=== PATIENT | male | born 1965 | race African-American/Black ===

== ENCOUNTER 2018-08-25 17:20 | Inpatient (IN) | payer OTHER, MEDICARE ==
[~2018-08-25] VITALS: Ht 167.6 cm; Wt 94.8 kg
[2018-08-25] MEDS ORDERED: SODIUM CHLORIDE 0.9% 1,000 ML IVB ONE (18:11)
[2018-08-25] MEDS ORDERED: ACETAMINOPHEN 325 MG TAB PO ONE (18:15)
[2018-08-25 18:32] LABS: Hemoglobin 17.6 g/dL (13.5-17.5); Mean Corpuscular Volume 100.2 fL (80.0-100.0); Red Cell Distribution Width 13.3 % (11.8-14.3)
[2018-08-25 18:35] LABS: Hematocrit 51.1 % (41.0-53.0); Mean Corpuscular Hemoglobin 34.5 pg (28.0-32.0); Mean Corpuscular Hgb Conc. 34.4 g/dL (32.0-36.0); Platelet Count (auto) 166 10^3/uL (140-450); White Blood Cell 6.7 10^3/uL (4.4-10.8)
[2018-08-25 18:40] LABS: Basophils % (manual) 0 (0.0-2.0); Blast Cells 0; Eosinophils % (manual) 0 (0-7); Metamyelocytes % 0; Myelocytes % 0; Promyelocytes % 0; Reactive Lymphocytes 0
[2018-08-25 18:50] LABS: Albumin 3.7 g/dL (3.4-5.0); Anion Gap 7 (5-15); Blood Urea Nitrogen 10 mg/dL (7-18); Calcium 8.7 mg/dL (8.5-10.1); Carbon Dioxide 29 mmol/L (21-32); Chloride 102 mmol/L (98-107); Glucose 223 mg/dL (74-106); Potassium 3.4 mmol/L (3.5-5.1); Sodium 138 mmol/L (136-145)
[2018-08-25 18:54] LABS: INR 0.99 (0.9-1.15); Partial Thromboplastin Time 30.4 sec (23.78-33.04); Prothrombin Time 10.6 sec (9.27-12.13)
[2018-08-25 18:56] LABS: Alanine Aminotransferase 25 U/L (16-61); Alkaline Phosphatase 58 U/L (45-117); Aspartate Aminotransferase 28 U/L (15-37); BUN/Creatinine Ratio 8.1; Bilirubin, Total 0.7 mg/dL (0.2-1.0); GFR African American > 60 mL/min; GFR Non-African American > 60 mL/min; Total Protein 8.1 g/dL (6.4-8.2)
[2018-08-25] MEDS ORDERED: cefTRIAXone 1GM/50ML D5W 50 ML IV ONE (19:45)
[2018-08-25] MEDS ORDERED: ASPirin-EC 81 mg tab PO ONE (19:45)
[2018-08-25] MEDS ORDERED: NITROGLYCERIN 0.4 MG SL TAB SL PRN (20:30)
[2018-08-25] MEDS ORDERED: ENOXAPARIN SOD 100 MG/1 ML SYRINGE SC ONE (20:30)
[2018-08-25] MEDS ORDERED: DEXTROSE (50%) 50ML SYRG IV PRN (20:30)
[2018-08-25] MEDS ORDERED: MORPHINE SULFATE 10 MG/ML INJ 1ML SDV IV PRN (20:30)
[2018-08-25] MEDS ORDERED: DOCUSATE SOD 100 MG CAP PO PRN (20:30)
[2018-08-25] MEDS ORDERED: DILTIAZEM HCL 25 MG/5 ML VIAL IV ONE (20:30)
[2018-08-25] MEDS ORDERED: ENOXAPARIN SOD 80 MG/0.8ML SYRINGE SC ONE (20:45)
[2018-08-25] MEDS ORDERED: ONDANSETRON HCL 4 MG/2 ML VIAL IV ONE (21:00)
[2018-08-25] MEDS ORDERED: MORPHINE SULFATE 10 MG/ML INJ 1ML SDV IV ONE (21:00)
[2018-08-25 21:30] LABS: Band Neutrophils % (manual) 2; Lymphocytes % (manual) 6 (10.0-50.0); Monocytes % (manual) 8 (0-12)
[2018-08-25] MEDS ORDERED: ATORVASTATIN 20 MG TAB PO SCH (22:00)
[2018-08-25 22:40] VITALS: BP 147/69
--- NOTE | 2018-08-25 22:40 | NUR ---
Telemetry admit from ER RE[facility] KENYON admitted to Telemetry unit. Patient oriented to Carly Blair RN primary RN, unit, room, bed, and unit policies regarding patient care and visiting hours. Patient now on continuous telemetry monitoring, tele box # 8 sinus tachy 116. Patient placed on bedside oxygen 3L NC, weighed by bedscale and encouraged to call if they need something. All questions and concerns addressed, patient verbalized understanding. Note:
[2018-08-25] MEDS ORDERED: METOPROLOL TARTRATE 25 MG TAB PO ONE (22:45)
[2018-08-25] MEDS: FAMOTIDINE 20 MG TAB PO SCH (23:24)
[2018-08-25] MEDS: ACETAMINOPHEN 325 MG TAB PO PRN (23:24)
[2018-08-25] MEDS: ACCU-CHEK COMFORT CURVE STRIP VI SCH (23:25)
[2018-08-25] MEDS: InsuLIN REG 1unit/0.01ml Soln (100units/ml) SC SCH (23:30)
[2018-08-25] MEDS: TEMAZEPAM 15 MG CAP PO PRN (23:35)
[2018-08-25 23:43] VITALS: BP 147/67
--- NOTE | 2018-08-25 23:50 | NUR ---
UA bulleted to lab
[2018-08-26] VITALS (8 sets, daily range): BP systolic 117–150; BP diastolic 74–90
[2018-08-26 00:01] LABS: Urine Bacteria NONE SEEN /hpf (None Seen); Urine Blood 2+ /uL (Negative); Urine Mucus FEW (None Seen); Urine Specific Gravity 1.036 (1.001-1.035); Urine WBC 6 /hpf (0 - 3)
[2018-08-26] MEDS: ACETAMINOPHEN 325 MG TAB PO PRN (05:23)
--- NOTE | 2018-08-26 05:29 | NUR ---
MD Called/paged Hospitalist called re:sob at rest on 5L NC, wheezing and rales, patient requesting breathing treatment . Waiting for call back. Continue care.
[2018-08-26] MEDS ORDERED: methylPREDNISolone SOD SUCC 125 MG/2 ML VL IV ONE (05:45)
[2018-08-26] MEDS: InsuLIN REG 1unit/0.01ml Soln (100units/ml) SC SCH ×3 (06:01→17:33)
[2018-08-26] MEDS: ACCU-CHEK COMFORT CURVE STRIP VI SCH ×3 (06:01→17:33)
[2018-08-26] MEDS: ALBUTEROL SULF 2.5 MG/0.5ML(0.5%) NEB SOLN NEB PRN ×2 (06:02→15:02)
--- NOTE | 2018-08-26 06:03 | NUR ---
RT at bedside Patient states pain has been relieved with pain medication, sob at 5L NC, improved. Will continue to monitor, medicated as ordered. RT to administer ordered breathing treatment at this time
[2018-08-26 06:23] LABS: Basophils # (auto) 0 uL; Basophils % (auto) 0.3 % (0.0-2.0); Eosinophils # (auto) 0 uL; Lymphocytes # (auto) 0.8 uL; Monocytes # (auto) 0.4 uL
[2018-08-26 06:26] LABS: Eosinophils % (auto) 0.1 % (0.0-7.0); Hematocrit 46.7 % (41.0-53.0); Hemoglobin 16.3 g/dL (13.5-17.5); Lymphocytes % (auto) 10.5 % (10.0-50.0); Mean Corpuscular Hgb Conc. 34.9 g/dL (32.0-36.0); Mean Corpuscular Volume 100.2 fL (80.0-100.0); Monocytes % (auto) 4.9 % (0.0-12.0); Neutrophils # (auto) 6.5 uL; Neutrophils % (auto) 84.2 % (37.0-80.0); Platelet Count (auto) 157 10^3/uL (140-450); Red Blood Cells 4.66 10^6/uL (4.5-5.90); Red Cell Distribution Width 13.2 % (11.8-14.3); White Blood Cell 7.7 10^3/uL (4.4-10.8)
[2018-08-26 06:55] LABS: Albumin 3.4 g/dL (3.4-5.0); Anion Gap 6 (5-15); Blood Urea Nitrogen 14 mg/dL (7-18); Calcium 8.5 mg/dL (8.5-10.1); Carbon Dioxide 29 mmol/L (21-32); Chloride 102 mmol/L (98-107); Glucose 171 mg/dL (74-106); Sodium 137 mmol/L (136-145)
[2018-08-26 06:58] LABS: Alanine Aminotransferase 28 U/L (16-61); Alkaline Phosphatase 52 U/L (45-117); Aspartate Aminotransferase 48 U/L (15-37); Bilirubin, Total 0.6 mg/dL (0.2-1.0); GFR African American > 60 mL/min; GFR Non-African American > 60 mL/min; Total Protein 7.5 g/dL (6.4-8.2)
--- NOTE | 2018-08-26 08:00 | NUR ---
RECEIVED PT RESTING IN BED, CALL LIGHT WITHIN REACH, ECHOCARDIOGRAM IN PROCESS, NO PAIN OR DISTRESS NOTED OR REPORTED AT THIS TIME, WILL CONTINUE TO MONITOR PT.
[2018-08-26] MEDS: LEVOFLOXACIN 500MG 100 ML IV SCH (09:54)
[2018-08-26] MEDS: FAMOTIDINE 20 MG TAB PO SCH ×2 (09:55→22:40)
[2018-08-26] MEDS: LISINOPRIL 10 MG TAB PO SCH (09:56)
[2018-08-26] MEDS ORDERED: ASPirin 81 mg TAB PO SCH (10:00)
[2018-08-26] MEDS ORDERED: METOPROLOL TARTRATE 25 MG TAB PO SCH (10:00)
[2018-08-26] MEDS ORDERED: FUROSEMIDE 40 MG/4 ML VIAL IV ONE (13:30)
--- NOTE | 2018-08-26 14:50 | NUR ---
RECEIVED A CALL FROM R.T. TO REPORT CRITICAL LAB VALUE OF PO2 44.8, CALLED AND SPOKE TO DR. ROBLES AND INFORMED HER REGARDING THE CRITICAL LAB VALUE. NO FURTHER ORDERS RECEIVED.
--- NOTE | 2018-08-26 15:04 | NUR ---
RECEIVED A CALL FROM BRITTNI / [facility] [employer]OVER [phone], BRITTNI SPOKE TO PT, PT REQUESTED TO STAY AT THIS HOSPITAL FOR TODAY, PER BRITTNI PT IS OK TO STAY TODAY AND HE WILL CALL TACKING STITCH REMOVER TOMORROW TO SEE IF PT WANTS TO STAY HERE FOR THE REST OF HIS VISIT OR TRANSFER TO [facility].
--- NOTE | 2018-08-26 15:10 | NUR ---
TRANSFER HELD: EDUARD[facility] LA[facility] BUT ALSO HAS MEDICARE SECONDARY, SO; HE HAS A CHOICE OF STAYING AND BRITTNI LAUGHLIN CM SPOKE WITH PT AND BRITTNI STATED PT WANTS TO STAY AT [facility].
[2018-08-26 16:56] LABS: Alcohol, Urine < 3.0 mg/dL (0-5); Amphetamine Screen, Urine NEGATIVE (NEGATIVE); Barbiturate Scree,Urine NEGATIVE (NEGATIVE); Benzodiazephine Screen, Urine NEGATIVE (NEGATIVE); Cannabinoid Screen, Urine NEGATIVE (NEGATIVE); Cocaine Screen, Urine NEGATIVE (NEGATIVE); Opiate Scree,Urine NEGATIVE (NEGATIVE); Phencyclidine Screen, Urine NEGATIVE (NEGATIVE)
--- NOTE | 2018-08-26 17:08 | NUR ---
RECEIVED A CALL FROM HARRIETT JEFFERS TO REPORT INFLUENZA A POSITIVE, PAGED HOSPITALIST TO INFORMED POSITIVE RESULTS, PLACED PT ON ISOLATION, AWAITING CALL BACK.
--- NOTE | 2018-08-26 17:19 | NUR ---
RECEIVED CALL BACK FROM DR. LAGUERRE, REPORTED POSITIVE INFLUENZA A, ORDERS RECEIVED TO PLACE PT ON ISOLATION AND TO ORDER TAMIFLU.
--- NOTE | 2018-08-26 19:08 | NUR ---
PRN MED NEB ASSESSMENT. PT DENIES SOB. NO DISTRESS NOTED AT THIS TIME. POX 95% ON 4L NC HR 100 RR 20 BS ARE DIMINISHED IN LOWER LOBES. TX NOT GIVEN.
[2018-08-26] MEDS: OSELTAMIVIR 75 MG CAP PO SCH (22:37)
[2018-08-26] MEDS: ATORVASTATIN 20 MG TAB PO SCH (22:37)
[2018-08-26] MEDS: HYDROcodone-ACET 5/325MG TAB PO PRN (22:38)
[2018-08-26] MEDS: TEMAZEPAM 15 MG CAP PO PRN (22:38)
[2018-08-26] MEDS: METOPROLOL TARTRATE 25 MG TAB PO SCH (22:38)
[2018-08-26] MEDS: ENOXAPARIN SOD 80 MG/0.8ML SYRINGE SC SCH (22:44)
--- NOTE | 2018-08-26 23:56 | NUR ---
MD Called/paged Hospitalist called re:positive blood cultures- gram positive cocci in clusters . Waiting for call back. Continue care.
--- NOTE | 2018-08-27 00:10 | NUR ---
returned call Hospitalist Frantz returned call, updated on reason for call-positive blood cultures and current antibiotics, no new orders received at this time, states he will review chart. Continue care.
[2018-08-27] MEDS: InsuLIN REG 1unit/0.01ml Soln (100units/ml) SC SCH ×5 (00:27→22:37)
[2018-08-27] MEDS: ACCU-CHEK COMFORT CURVE STRIP VI SCH ×5 (00:27→22:37)
[2018-08-27 05:00] VITALS: BP 108/74
[2018-08-27] MEDS: HYDROcodone-ACET 5/325MG TAB PO PRN ×2 (05:26→22:35)
[2018-08-27 06:53] LABS: Basophils # (auto) 0 uL; Eosinophils # (auto) 0 uL; Monocytes # (auto) 0.3 uL; Nucleated Red Blood Cells % 0.1 %; Red Cell Distribution Width 13.1 % (11.8-14.3)
[2018-08-27 06:59] LABS: Basophils % (auto) 0.1 % (0.0-2.0); Hematocrit 46.7 % (41.0-53.0); Hemoglobin 15.9 g/dL (13.5-17.5); Lymphocytes % (auto) 14.2 % (10.0-50.0); Mean Corpuscular Hemoglobin 34.3 pg (28.0-32.0); Mean Corpuscular Hgb Conc. 34.1 g/dL (32.0-36.0); Mean Corpuscular Volume 100.4 fL (80.0-100.0); Monocytes % (auto) 4.9 % (0.0-12.0); Neutrophils # (auto) 5.4 uL; Neutrophils % (auto) 80.8 % (37.0-80.0); Platelet Count (auto) 146 10^3/uL (140-450); Red Blood Cells 4.65 10^6/uL (4.5-5.90); White Blood Cell 6.7 10^3/uL (4.4-10.8)
[2018-08-27 07:24] LABS: Chloride 100 mmol/L (98-107); Potassium 3.7 mmol/L (3.5-5.1); Sodium 134 mmol/L (136-145)
[2018-08-27 07:37] LABS: Anion Gap 7 (5-15); BUN/Creatinine Ratio 20.2; Blood Urea Nitrogen 24 mg/dL (7-18); Calcium 8.3 mg/dL (8.5-10.1); Carbon Dioxide 27 mmol/L (21-32); Cholesterol 172 mg/dL (< 200); GFR African American > 60 mL/min; GFR Non-African American > 60 mL/min; Glucose 160 mg/dL (74-106); HDL Cholesterol 52 mg/dL (40-59); LDL Cholesterol 107 mg/dL (< 100); Magnesium 2.3 mg/dL (1.6-2.6); Triglycerides 148 mg/dL (< 150)
[2018-08-27] MEDS: ALBUTEROL SULF 2.5 MG/0.5ML(0.5%) NEB SOLN NEB PRN ×2 (08:05→19:20)
--- NOTE | 2018-08-27 08:25 | NUR ---
Opening Shift Note Assumed care of patient, awake and alert. No S/S of distress/SOB or pain. Instructed on POC and to call for assist PRN, will continue to monitor for changes Q1hr and PRN.
[2018-08-27 09:00] VITALS: BP 100/67
[2018-08-27] MEDS: LEVOFLOXACIN 500MG 100 ML IV SCH (09:27)
[2018-08-27] MEDS: ENOXAPARIN SOD 80 MG/0.8ML SYRINGE SC SCH (09:28)
[2018-08-27] MEDS: ASPirin 81 mg TAB PO SCH (09:28)
[2018-08-27] MEDS: OSELTAMIVIR 75 MG CAP PO SCH ×2 (09:28→22:34)
[2018-08-27] MEDS: FAMOTIDINE 20 MG TAB PO SCH (09:28)
[2018-08-27] MEDS: METOPROLOL TARTRATE 25 MG TAB PO SCH ×2 (09:31→10:00)
[2018-08-27] MEDS: FUROSEMIDE 40 MG/4 ML VIAL IV SCH (09:32)
[2018-08-27] MEDS: LISINOPRIL 10 MG TAB PO SCH (09:50)
[2018-08-27] MEDS ORDERED: OSELTAMIVIR 75 MG CAP PO ONE (11:15)
[2018-08-27] MEDS ORDERED: DIGOXIN 0.25 MG TAB PO ONE (11:30)
[2018-08-27] MEDS ORDERED: SPIRONOLACTONE 25 MG TAB PO ONE (11:30)
[2018-08-27] MEDS ORDERED: CARVEDILOL 3.125 MG TAB PO ONE (11:30)
[2018-08-27 13:00] VITALS: BP 89/67
--- NOTE | 2018-08-27 13:02 | NUR ---
Room change Patient transferred to Room 283 from room 284A with all personal belongings.
[2018-08-27 16:57] VITALS: BP 105/71
[2018-08-27] MEDS: SPIRONOLACTONE 25 MG TAB PO SCH (17:59)
[2018-08-27] MEDS ORDERED: METF-370 PO (19:44)
[2018-08-27] MEDS ORDERED: LISI10TA6 PO (19:44)
[2018-08-27] MEDS ORDERED: ATOR40TA52 PO (19:44)
[2018-08-27] MEDS ORDERED: DOXY100C2 PO (19:44)
[2018-08-27 22:00] VITALS: BP 112/72
[2018-08-27] MEDS ORDERED: OSELTAMIVIR 75 MG CAP PO SCH (22:00)
[2018-08-27] MEDS: ATORVASTATIN 20 MG TAB PO SCH (22:34)
[2018-08-27] MEDS: CARVEDILOL 3.125 MG TAB PO SCH (22:34)
[2018-08-27] MEDS: TEMAZEPAM 15 MG CAP PO PRN (22:35)
[2018-08-28 05:44] VITALS: BP 115/72
[2018-08-28] MEDS: InsuLIN REG 1unit/0.01ml Soln (100units/ml) SC SCH ×4 (06:00→23:06)
[2018-08-28 06:15] LABS: Anion Gap 8 (5-15); BUN/Creatinine Ratio 22.7; Blood Urea Nitrogen 25 mg/dL (7-18); Calcium 8.5 mg/dL (8.5-10.1); Carbon Dioxide 27 mmol/L (21-32); Chloride 98 mmol/L (98-107); GFR African American > 60 mL/min; GFR Non-African American > 60 mL/min; Glucose 98 mg/dL (74-106); Potassium 3.5 mmol/L (3.5-5.1); Sodium 133 mmol/L (136-145)
[2018-08-28] MEDS: SPIRONOLACTONE 25 MG TAB PO SCH ×2 (06:46→17:47)
[2018-08-28] MEDS: ACCU-CHEK COMFORT CURVE STRIP VI SCH ×4 (06:47→23:06)
[2018-08-28 09:02] VITALS: BP 122/75
[2018-08-28] MEDS: LISINOPRIL 10 MG TAB PO SCH (10:00)
[2018-08-28] MEDS: ASPirin 81 mg TAB PO SCH (10:00)
[2018-08-28] MEDS: OSELTAMIVIR 75 MG CAP PO SCH ×2 (10:00→23:05)
[2018-08-28] MEDS: DIGOXIN 0.25 MG TAB PO SCH (10:00)
[2018-08-28] MEDS: CARVEDILOL 3.125 MG TAB PO SCH ×2 (10:01→23:04)
[2018-08-28] MEDS: HYDROcodone-ACET 5/325MG TAB PO PRN ×2 (10:02→23:06)
[2018-08-28] MEDS: FUROSEMIDE 40 MG/4 ML VIAL IV SCH (10:04)
--- NOTE | 2018-08-28 11:45 | NUR ---
Patient sitting up in bed in no obvious distress. Nasal canula off, oxygen saturation was 88%. With oxygen saturation went up to 95%. Encouraged patient to keep oxygen on.
[2018-08-28] MEDS ORDERED: guaiFENesin-DM 100/10mg/5ml SYR PO PRN (12:30)
[2018-08-28] MEDS ORDERED: POTASSIUM CHL 10 Meq TABLET PO ONE (12:30)
[2018-08-28 12:40] VITALS: BP 104/48
[2018-08-28 14:12] VITALS: BP 104/70
[2018-08-28] MEDS: ALBUTEROL SULF 2.5 MG/0.5ML(0.5%) NEB SOLN NEB PRN ×2 (16:32→20:15)
[2018-08-28 16:43] VITALS: BP 121/75
[2018-08-28 22:00] VITALS: BP 128/74
[2018-08-28] MEDS: ATORVASTATIN 20 MG TAB PO SCH (23:04)
[2018-08-28] MEDS: TEMAZEPAM 15 MG CAP PO PRN (23:06)
[2018-08-29 05:00] VITALS: BP 122/88
[2018-08-29] MEDS: InsuLIN REG 1unit/0.01ml Soln (100units/ml) SC SCH ×4 (06:50→22:18)
[2018-08-29] MEDS: SPIRONOLACTONE 25 MG TAB PO SCH ×2 (06:50→17:59)
[2018-08-29] MEDS: ACCU-CHEK COMFORT CURVE STRIP VI SCH ×4 (06:51→22:18)
[2018-08-29 06:53] LABS: Chloride 99 mmol/L (98-107); Potassium 3.6 mmol/L (3.5-5.1); Sodium 136 mmol/L (136-145)
[2018-08-29 06:59] LABS: Anion Gap 7 (5-15); BUN/Creatinine Ratio 22.1; Blood Urea Nitrogen 23 mg/dL (7-18); Calcium 8.6 mg/dL (8.5-10.1); Carbon Dioxide 30 mmol/L (21-32); GFR African American > 60 mL/min; GFR Non-African American > 60 mL/min; Glucose 147 mg/dL (74-106); Magnesium 2.4 mg/dL (1.6-2.6)
[2018-08-29 09:18] VITALS: BP 126/77
[2018-08-29] MEDS: ALBUTEROL SULF 2.5 MG/0.5ML(0.5%) NEB SOLN NEB PRN (09:32)
[2018-08-29] MEDS: LISINOPRIL 10 MG TAB PO SCH (10:00)
[2018-08-29] MEDS: FUROSEMIDE 40 MG/4 ML VIAL IV SCH (10:08)
[2018-08-29] MEDS: CARVEDILOL 3.125 MG TAB PO SCH ×2 (10:09→22:17)
[2018-08-29] MEDS: DIGOXIN 0.25 MG TAB PO SCH (10:09)
[2018-08-29] MEDS: HYDROcodone-ACET 5/325MG TAB PO PRN ×3 (10:10→22:17)
[2018-08-29] MEDS: ASPirin 81 mg TAB PO SCH (10:10)
[2018-08-29 10:14] VITALS: BP 126/77
[2018-08-29] MEDS: OSELTAMIVIR 75 MG CAP PO SCH ×2 (10:21→22:17)
[2018-08-29] MEDS: POTASSIUM CHL 10 Meq TABLET PO SCH (10:21)
[2018-08-29 13:00] VITALS: BP 115/70
--- NOTE | 2018-08-29 14:30 | NUR ---
NUTRITION ASSESSMENT NOTES Please refer to link notes of nutrition screen form filed under the intervention section of the plan of care for further details. Est. Needs: 1550 kcal to 1850 kcal (25-30 kcal/kgBW), 62 gms to 75 gms pro (1.0-1.2 gms/kgBW). Will continue to monitor pertinent labs and reassess nutrient needs prn Thank you. Addendum: 08/29/18 at [address] Amended: Links added.
--- NOTE | 2018-08-29 15:00 | NUR ---
Family members at bedside.
[2018-08-29] MEDS ORDERED: MORPHINE SULFATE 10 MG/ML INJ 1ML SDV IV PRN (15:15)
[2018-08-29 17:17] VITALS: BP 129/76
--- NOTE | 2018-08-29 19:30 | NUR ---
PRN MED NEB ASSESSMENT. PT DENIES SOB. NO DISTRESS NOTED AT THIS TIME. POX 97% ON 3 L NC HR 80 RR 18. BS ARE FAINT CRACKLES IN BASES. TX NOT GIVEN.
--- NOTE | 2018-08-29 19:35 | NUR ---
Opening shift Note Pt is resting in bed with eyes open and resp rate is even and unlabored. No s/s of any distress noted at this time. Pt lung sounds are still with crackles in bilateral bases and rhonchi in bilat upper lobes. Pt states that he is feeling much better than when he came into the hospital. Pt remains on Iso for Influenza A positive protocol. Bed is low, wheels are locked, and call light is with in reach.
[2018-08-29 22:00] VITALS: BP 131/87
[2018-08-29] MEDS: ATORVASTATIN 20 MG TAB PO SCH (22:17)
[2018-08-30 05:00] VITALS: BP 121/73
[2018-08-30] MEDS: InsuLIN REG 1unit/0.01ml Soln (100units/ml) SC SCH ×3 (06:15→18:15)
[2018-08-30] MEDS: SPIRONOLACTONE 25 MG TAB PO SCH ×2 (06:15→18:15)
[2018-08-30] MEDS: ACCU-CHEK COMFORT CURVE STRIP VI SCH ×3 (06:16→18:15)
[2018-08-30] MEDS: HYDROcodone-ACET 5/325MG TAB PO PRN ×2 (06:16→21:42)
[2018-08-30 09:00] VITALS: BP 127/69
[2018-08-30] MEDS: POTASSIUM CHL 10 Meq TABLET PO SCH (09:39)
[2018-08-30] MEDS: ASPirin 81 mg TAB PO SCH (09:39)
[2018-08-30] MEDS: FUROSEMIDE 40 MG/4 ML VIAL IV SCH (09:39)
[2018-08-30] MEDS: OSELTAMIVIR 75 MG CAP PO SCH ×2 (09:40→21:41)
[2018-08-30] MEDS: CARVEDILOL 3.125 MG TAB PO SCH ×2 (09:40→21:44)
[2018-08-30] MEDS: DIGOXIN 0.25 MG TAB PO SCH (09:41)
[2018-08-30] MEDS: LISINOPRIL 10 MG TAB PO SCH (10:00)
--- NOTE | 2018-08-30 10:00 | NUR ---
Respiratory note: PATIENT ASSESSED FOR PRN MED-NEB, HE DENIES NEED AT THIS TIME AND DOES NOT APPEAR TO BE IN ANY ACUTE RESPIRATORY DISTRESS. HE WAS INSTRUCTED TO CALL FOR RT IF HE FELT THE NEED FOR TX AT A LATER TIME. SPO2 93% 3LPM N/C.
[2018-08-30 13:00] VITALS: BP 98/52
[2018-08-30 17:00] VITALS: BP 125/67
--- NOTE | 2018-08-30 17:30 | NUR ---
Patient called for breathing treatment, RT paged.
[2018-08-30] MEDS: ALBUTEROL SULF 2.5 MG/0.5ML(0.5%) NEB SOLN NEB PRN (18:35)
--- NOTE | 2018-08-30 19:30 | NUR ---
Opening shift note Patient in bed alert and oriented x 4, verbally coherent, able to make needs known. Patient's respiration even and unlabored, denies pain and discomfort at this time. Plan of care discussed, patient verbalized understanding. All needs attended, will continue to monitor.
[2018-08-30] MEDS: TEMAZEPAM 15 MG CAP PO PRN (21:42)
[2018-08-30] MEDS: ATORVASTATIN 20 MG TAB PO SCH (21:59)
[2018-08-30 22:00] VITALS: BP 150/74
[2018-08-31] MEDS: ACCU-CHEK COMFORT CURVE STRIP VI SCH ×3 (00:35→11:51)
[2018-08-31] MEDS: InsuLIN REG 1unit/0.01ml Soln (100units/ml) SC SCH ×3 (00:35→11:51)
[2018-08-31 05:00] VITALS: BP 130/73
[2018-08-31] MEDS: SPIRONOLACTONE 25 MG TAB PO SCH (05:30)
[2018-08-31] MEDS: HYDROcodone-ACET 5/325MG TAB PO PRN (05:32)
[2018-08-31 06:51] LABS: Anion Gap 5 (5-15); Blood Urea Nitrogen 20 mg/dL (7-18); Calcium 9.5 mg/dL (8.5-10.1); Carbon Dioxide 28 mmol/L (21-32); Chloride 104 mmol/L (98-107); Glucose 125 mg/dL (74-106); Potassium 3.6 mmol/L (3.5-5.1); Sodium 137 mmol/L (136-145)
[2018-08-31 06:54] LABS: BUN/Creatinine Ratio 20.6; GFR African American > 60 mL/min; GFR Non-African American > 60 mL/min
--- NOTE | 2018-08-31 08:00 | NUR ---
Opening Shift Note Assumed care of patient, awake, alert and oriented X4. No S/S of distress/SOB or pain. Tele# 8, sinus rhythm # 76 bpm. IV to right forearm, 20 gauge, patent and saline locked. Patient remains in droplet isolation for positive Influenza A. Instructed on POC and to call for assist PRN, verbalized understanding. Bed locked, in lowest position, call light within reach, will continue to monitor for changes Q1hr and PRN.
[2018-08-31 09:00] VITALS: BP 121/69
[2018-08-31] MEDS: FUROSEMIDE 40 MG/4 ML VIAL IV SCH (10:49)
[2018-08-31] MEDS: ASPirin 81 mg TAB PO SCH (10:49)
[2018-08-31] MEDS: CARVEDILOL 3.125 MG TAB PO SCH (10:50)
[2018-08-31] MEDS: DIGOXIN 0.25 MG TAB PO SCH (10:50)
[2018-08-31] MEDS: OSELTAMIVIR 75 MG CAP PO SCH (10:50)
[2018-08-31] MEDS: POTASSIUM CHL 10 Meq TABLET PO SCH (10:50)
[2018-08-31] MEDS: LISINOPRIL 10 MG TAB PO SCH (10:51)
--- NOTE | 2018-08-31 10:53 | NUR ---
ROUNDS Dr Xavier at bedside for rounds, new orders received and followed through. Patient updated on plan of care, verbalized understanding, continue care.
[2018-08-31 12:35] VITALS: BP 142/82
[2018-08-31] MEDS ORDERED: FURO40TA PO (12:58)
[2018-08-31] MEDS ORDERED: POTA-167 PO (12:58)
[2018-08-31] MEDS ORDERED: ASPI81CH43 PO (12:58)
[2018-08-31] MEDS ORDERED: CAR3125T PO (12:58)
[2018-08-31] MEDS ORDERED: SPIR25TA88 PO (12:58)
[2018-08-31] MEDS ORDERED: DIGO0.2527 PO (12:58)
== END 2018-08-31 14:50 | disposition home or self-care (01) | DRG 280 ==
LOC: ER 17:20 → EDBD 17:20 → TELE 20:50 → TELE-WESTW 22:40
PROVIDERS: ADMIT Nurse Practitioner; ATTEND Internal Medicine
DX: I21.A1 Myocardial infarction type 2 (principal); I50.43 Acute on chronic combined systolic (congestive) and diastolic (congestive) heart failure; J10.00 Influenza due to other identified influenza virus with unspecified type of pneumonia; J96.00 Acute respiratory failure, unspecified whether with hypoxia or hypercapnia; I42.0 Dilated cardiomyopathy; E11.65 Type 2 diabetes mellitus with hyperglycemia; E78.5 Hyperlipidemia, unspecified; I08.1 Rheumatic disorders of both mitral and tricuspid valves; I11.0 Hypertensive heart disease with heart failure; I25.10 Atherosclerotic heart disease of native coronary artery without angina pectoris; I25.2 Old myocardial infarction; I27.20 Pulmonary hypertension, unspecified; I48.91 Unspecified atrial fibrillation; Z82.49 Family history of ischemic heart disease and other diseases of the circulatory system; Z87.891 Personal history of nicotine dependence; Z91.19 Patient's noncompliance with other medical treatment and regimen; Z95.810 Presence of automatic (implantable) cardiac defibrillator; Z79.899 Other long term (current) drug therapy; Z79.82 Long term (current) use of aspirin
CPT/HCPCS: 36415; 36600; 71045; 80048; 80053; 80061; 80162; 80307; 81001; 82805; 82962; 83036; 83605; 83735; 83880; 84484; 85007; 85025; 85027; 85610; 85730; 87040; 87070; 87077; 87186; 87205; 87804; 93005; 93306; 94640; 96361; 96365; 96375; 99291; G0378; J0696; J1815; J1956; J2405